=== PATIENT | male | born 1980 | race Caucasian/White ===

== ENCOUNTER 2023-09-29 14:04 | Emergency (ER) | payer OTHER ==
[2023-09-29 14:13] VITALS: BP 148/85; O2SAT 100
--- NOTE | 2023-09-29 15:15 | XRAY Report ---
PROCEDURE: Ribs w/PA Chest 3+V LT INDICATIONS: pain TECHNIQUE: 2 views of the ribs were acquired, along with a single view chest. COMPARISON: None. FINDINGS: Surgical changes and devices: None. Bones and chest wall: No fractures or dislocations. No suspicious bony lesions. Overlying soft tis sues appear unremarkable. Lungs and pleura: No pleural effusions or pneumothorax. Lungs appear clear. Mediastinum: Mediastinal contours appear normal. Heart size is normal. IMPRESSION: No displaced rib fracture or pneumothorax. Reviewed by: Hudson Merida MD on 09/29/2023 2:13 PM [place] Approved by: Hudson Merida MD on 09/29/2023 2:13 PM [facility] Station ID: [id number]
--- NOTE | 2023-09-29 15:18 | ED Physician Documentation ---
History of Present Illness - Stated complaint Stated Complaint: RIB PX,INJ - Chief complaint Chief Complaint: Trauma Ch/Bk - History obtained from History obtained from: Patient - Additonal information Additional information: 43-year-old male presents for possible rib fracture. Patient states that he was helping to assemble heavy equipment when he felt a pop in his left chest. He states that he has broken a rib previously the same mechanism is concerned that his rib may be broken. Has been taking Tylenol at home for symptoms without relief. Review of Systems Constitutional: denies: Fever, Chills Cardiac: reports: Chest pain / pressure. denies: Palpitations, Calf pain Respiratory: denies: Dyspnea, Cough, Wheezing GI: denies: Abdominal Pain, Nausea, Vomiting : denies: Dysuria, Frequency, Hesitancy Skin: denies: Rash, Lesions, Abrasion (s) PD PAST MEDICAL HISTORY - Past Medical History Past Medical History: Yes Cardiovascular: None Respiratory: None Neuro: None Endocrine/Autoimmune: None GI: None : None HEENT: None Psych: Anxiety Musculoskeletal: None Derm: None - Past Surgical History Past Surgical History: Yes General: Other - Present Medications Home Medications: Ambulatory Orders Medication Instructions Recorded Confirmed HYDROcod/ACETAM 5/325 [Mabie 5/325] 1 tab PO Q6H PRN #8 tab 09/29/23 methocarbamoL [Robaxin] 500 mg PO Q6H #20 tablet 09/29/23 - Allergies Allergies/Adverse Reactions: Allergies Allergy/AdvReac Type Severity Reaction Status Date / Time No Known Drug Allergies Allergy Verified 09/29/23 14:08 - Social History Does the pt smoke?: No Smoking Status: Never smoker Does the pt drink ETOH?: Yes Does the pt have substance abuse?: No - Immunizations Immunizations are current?: Yes - POLST Patient has POLST: No PD ED PE NORMAL - Vitals Vital signs reviewed: Yes - General General: Alert and oriented X 3, No acute distress, Well developed/nourished - Cardiac Cardiac: RRR, Strong equal pulses, Other (L chest wall tenderness to palpation. No crepitus, no deformity) - Respiratory Respiratory: No respiratory distress, Clear bilaterally - Derm Derm: Normal color, Warm and dry, No rash - Neuro Neuro: Alert and oriented X 3, regional engineer 2-12 intact, No motor deficit, Normal speech Results - Vitals Vitals: Oxygen O2 Source Room air PD Medical Decision Making - ED course Complexity details: reviewed results, re-evaluated patient, considered differential, d/w patient, d/w family ED course: Rib pain, patient is concerned that he may have a fracture. X-rays negative for fracture, patient counseled on pain medication and short prescription sent to pharmacy. Advised continuing to take deep breaths to prevent atelectasis and subsequent pneumonia. Departure - Departure Disposition: Home, Self Care Clinical Impression: Rib pain Condition: Stable Instructions: ED Contusion Rib Prescriptions: HYDROcod/ACETAM 5/325 [Mabie 5/325] 1 tab PO Q6H PRN #8 tab PRN Reason: Pain 5-7 methocarbamoL [Robaxin] 500 mg PO Q6H #20 tablet Comments: You are being sent home with a muscle relaxer as well as a very short course of a narcotic pain medication. Please do not drink alcohol or operate heavy machinery when taking this medication. It may cause mild constipation, take a stool softener if you are going to take this medication. You may also take Tylenol and Motrin for additional pain relief. Be careful to avoid taking more than 4000 mg of Tylenol per day. Forms: PCP List Discharge Date/Time: 09/29/23 15:45
== END 2023-09-29 15:45 | disposition home or self-care (01) ==
LOC: ED 14:04
DX: R07.81 Pleurodynia (principal); X50.0XXA Overexertion from strenuous movement or load, initial encounter; Y93.89 Activity, other specified
CPT/HCPCS: 99283